=== PATIENT | male | born 1970 | race Caucasian/White ===

== ENCOUNTER 2022-12-21 21:08 | Observation (INO) | payer OTHER ==
[2022-12-22 04:54] VITALS: BMI 40.5
[2022-12-22] MEDS ORDERED: Ketorolac Tromethamine 30 MG/ML VIAL IVP PRN (08:05)
[2022-12-22] MEDS ORDERED: Morphine 4 MG/ML VIAL SLOW IVP PRN (08:05)
[2022-12-22] MEDS ORDERED: Acetaminophen 500 MG TAB PO PRN (08:05)
[2022-12-22] MEDS ORDERED: Ibuprofen 600 MG TAB PO PRN (08:05)
[2022-12-22] MEDS ORDERED: Sodium Chloride 0.9% 1,000 ML IV SCH (08:15)
[2022-12-22] MEDS ORDERED: Ketorolac Tromethamine 30 MG/ML VIAL IVP SCH (08:15)
[2022-12-22] MEDS ORDERED: LevoFLOXacin 500 mg/D5W 500 MG in Premix Bag 1 BAG IVPB SCH (08:15)
[2022-12-22] MEDS ORDERED: Iopamidol 30 ML ONE (08:39)
[2022-12-22] MEDS ORDERED: Glucagon 1 MG/ML KIT ONE (08:39)
[2022-12-22] MEDS ORDERED: Bupivacaine HCl 0.5%/Epinephrine 1:200,000/PF 30 ml Vial ONE (08:39)
[2022-12-22] MEDS ORDERED: Fentanyl 250 MCG/5 ML VIAL ONE (09:05)
[2022-12-22] MEDS ORDERED: SUGAMMADEX SODIUM 200 MG/2 ML VIAL ONE (09:05)
[2022-12-22] MEDS ORDERED: HYDROmorphone 0.5 MG/0.5 ML SYRINGE ONE (09:06)
[2022-12-22] MEDS ORDERED: LevoFLOXacin 500 mg/D5W 100 ML BAG ONE (09:09)
[2022-12-22] MEDS ORDERED: Succinylcholine 200 MG/10 ml SYRINGE FS ONE (09:29)
[2022-12-22] MEDS ORDERED: Lidocaine 1% PF 5 ML VIAL ONE (09:29)
[2022-12-22] MEDS ORDERED: Rocuronium Bromide 10 MG/ML (10ML VIAL) ONE (09:29)
[2022-12-22] MEDS ORDERED: Ketorolac Tromethamine 30 MG/ML VIAL ONE (09:29)
[2022-12-22] MEDS ORDERED: Ondansetron PF 4 MG/2 ML Vial ONE (09:29)
[2022-12-22] MEDS ORDERED: PROPOFOL 200 MG/20 ML VIAL ONE (09:29)
[2022-12-22] MEDS ORDERED: Iopamidol 15 ML ONE (10:19)
[2022-12-22] MEDS ORDERED: HYDROmorphone 2 MG/ML VIAL SLOW IVP PRN (11:07)
[2022-12-22] MEDS ORDERED: Ondansetron HCl/PF 4 MG/2 ML Vial IVP PRN (11:07)
[2022-12-22] MEDS ORDERED: Promethazine HCl 25 MG/ML VIAL IM PRN (11:07)
[2022-12-22] MEDS ORDERED: TETANUS, DIPHTHERIA TOX,ADULT (TDVAX) 0.5 ML VIAL IM ONE (11:12)
[2022-12-22] MEDS ORDERED: Dextrose 5% in Water 1,000 ML IV PRN (11:12)
[2022-12-22] MEDS ORDERED: Glucagon 1 MG/ML KIT IM PRN (11:12)
[2022-12-22] MEDS ORDERED: Dextrose 50% Abboject 50 ML SYRINGE SLOW IVP PRN (11:12)
[2022-12-22] MEDS ORDERED: Ondansetron ODT 4 MG TAB PO PRN (11:18)
[2022-12-22] MEDS ORDERED: Ondansetron PF 4 MG/2 ML Vial IVP PRN (11:18)
[2022-12-22] MEDS ORDERED: hydrALAZINE 20 MG/ML VIAL SLOW IVP PRN (11:18)
[2022-12-22] MEDS: traMADol HCl 50 MG TAB PO PRN (13:29)
[2022-12-22] MEDS: Sodium Chloride 0.45% 1,000 ML IV SCH ×2 (13:29→22:18)
[2022-12-22] MEDS: Famotidine 20 MG TAB PO SCH (19:53)
[2022-12-23] MEDS: traMADol HCl 50 MG TAB PO PRN ×3 (01:28→19:14)
[2022-12-23] MEDS: Sodium Chloride 0.45% 1,000 ML IV SCH ×2 (01:30→11:19)
[2022-12-23 05:06] LABS: #Eosinphils 0.1 thou/uL (0.0-0.7); #Monocytes 0.4 thou/uL (0.11-0.59); #Neutrophils 4.4 thou/uL (1.40-6.50); %Basophils 0.4 % (0.0-1.0); %Eosinophils 1.6 % (0.0-10.0); %Lymphocytes 10.5 % (21.0-51.0); %Monocytes 6.7 % (0.0-10.0); %Neutrophils 80.4 % (42.0-75.0); Hematocrit 35.7 % (42.0-52.0); Hemoglobin 12.1 g/dL (14.0-18.0); Mean Corpuscular HGB CONC 33.9 g/dL (32.0-36.0); Mean Corpuscular Volume 85.6 fl (78.0-98.0); Mean Platelet Volume 10.1 fL (7.4-10.4); Platelet Count 96 10x3/uL (130-400); RBC Distribution Width 14.5 % (11.5-14.5); Red Blood Cell (RBC) Count 4.17 mill/uL (4.70-6.10); White Blood Cell (WBC) Count 5.5 10x3/uL (4.8-10.8)
[2022-12-23 05:33] LABS: ALT (SGPT) 308 U/L (8-55); AST (SGOT) 114 U/L (5-34); Albumin 3.1 g/dL (3.5-5.0); Alkaline Phosphatase 81 U/L (40-110); Anion Gap 12 mmol/L (10-20); BUN (Urea Nitrogen) 11 mg/dL (8.4-25.7); Bilirubin, Total 6.7 mg/dL (0.2-1.2); Calc. Creatinine Clearance 242 mL/min (70-130); Calcium 8.2 mg/dL (7.8-10.44); Carbon Dioxide 22 mmol/L (22-29); Chloride 104 mmol/L (98-107); Estimated GFR 113; Globulin 2.5 g/dL (2.4-3.5); Glucose 196 mg/dL (70-105); Lipase 13 U/L (8-78); Potassium 3.4 mmol/L (3.5-5.1); Protein, Total 5.6 g/dL (6.0-8.3); Sodium 135 mmol/L (136-145)
[2022-12-23 05:36] LABS: Hemoglobin A1c 6.6 % (4.0-6.0)
[2022-12-23] MEDS: HumaLOG 300 UNITS/3 ML VIAL SC PRN ×3 (07:34→17:04)
[2022-12-23] MEDS: Famotidine 20 MG TAB PO SCH ×2 (08:11→20:49)
[2022-12-23] MEDS ORDERED: LevoFLOXacin 750 mg/D5W 750 MG in Premix Bag 1 BAG IVPB SCH (12:00)
[2022-12-23] MEDS ORDERED: diphenhydrAMINE 25 MG CAP PO SCH (12:15)
[2022-12-24] MEDS ORDERED: diphenhydrAMINE 50 MG/ML VIAL IVP SCH (05:30)
[2022-12-24] MEDS ORDERED: Famotidine/PF 20 mg/2ml Vial SLOW IVP SCH (05:30)
[2022-12-24 06:27] LABS: ALT (SGPT) 208 U/L (8-55); AST (SGOT) 51 U/L (5-34); Alkaline Phosphatase 99 U/L (40-110); Bilirubin, Direct 2.6 mg/dL (0.1-0.3); Bilirubin, Total 3.2 mg/dL (0.2-1.2); Protein, Total 5.6 g/dL (6.0-8.3)
[2022-12-24] MEDS: Sodium Chloride 0.45% 1,000 ML IV SCH (07:16)
[2022-12-24] MEDS: Famotidine 20 MG TAB PO SCH (08:09)
[2022-12-24] MEDS ORDERED: (Dulaglutide [Trulicity] 0.75 MG/0.5 ML Pen.Injctr) SC SCH (09:00)
[2022-12-24 11:35] VITALS: BP 127/82; TEMP 98
[2022-12-24] MEDS ORDERED: Rosuvastatin 20 MG TAB PO SCH (21:00)
== END 2022-12-24 11:33 | disposition home or self-care (01) ==
LOC: ERS 21:08 → SJJU 23:50 → ERHOLD 12-22 00:04 → SURG A 12-22 08:30 → SJJU 12-22 13:18
PROVIDERS: ADMIT Surgery; ATTEND Surgery
PROC: 0FT44ZZ Resection of Gallbladder, Percutaneous Endoscopic Approach (ICD-10-PCS; principal; 2022-12-22)
PROC: BF13YZZ Fluoroscopy of Gallbladder and Bile Ducts using Other Contrast (ICD-10-PCS; 2022-12-22)
DX: K80.12 Calculus of gallbladder with acute and chronic cholecystitis without obstruction (principal); K85.90 Acute pancreatitis without necrosis or infection, unspecified; K76.0 Fatty (change of) liver, not elsewhere classified; E11.9 Type 2 diabetes mellitus without complications; E80.7 Disorder of bilirubin metabolism, unspecified; E66.01 Morbid (severe) obesity due to excess calories; Z68.41 Body mass index [BMI] 40.0-44.9, adult
CPT/HCPCS: 36415; 36416; 47532; 76705; 80053; 80076; 83036; 83690; 85025; 88304; 96360; 96361; C1889; G0378; J1170; J1200; J1611; J1650; J1815; J1885; J1956; J2405; J2704; J3010; Q0162; Q9967